=== PATIENT | male | born 1985 | race Hispanic/Latino ===

== ENCOUNTER → 2016-12-30 | Outpatient (CLI) | payer OTHER ==
[~2016-12-30] VITALS: Ht 165.1 cm; Wt 72.6 kg
[~2016-12-30] MED LIST: MELA0.02 PO; NS 1,000 ML IV SCH; PROPOFOL 200 MG/20 ML VIAL As Ordered ONE
--- NOTE | 2016-12-30 15:26 | ROOR ---
Patient Name: Joseph Rivas Procedure Date: 12/30/2016 2:57 PM Date of : 1985 Age: 31 Room: [facility] Gender: Male Note Status: Finalized Procedure: Colonoscopy Indications: Hematochezia, Change in bowel habits Providers: Marc LE MD Referring MD: ANDREW MORALES MD Requesting Provider: Medicines: Monitored Anesthesia Care Complications: No immediate complications. Procedure: Pre-Anesthesia Assessment: - The heart rate, respiratory rate, oxygen saturations, blood pressure, adequacy of pulmonary ventilation, and response to care were monitored throughout the procedure. The Colonoscope was introduced through the anus and advanced to 10 cm into the ileum. The colonoscopy was performed without difficulty. The patient tolerated the procedure well. The quality of the bowel preparation was good. Findings: The perianal and digital rectal examinations were normal. A 5 mm polyp was found at 15 cm proximal to the anus. The polyp was sessile. The polyp was removed with a cold snare. Resection and retrieval were complete. Area was tattooed with an injection of Jayleen ink. The exam was otherwise without abnormality on direct and retroflexion views. The terminal ileum appeared normal. Internal hemorrhoids were found during retroflexion. The hemorrhoids were small. Impression: - One 5 mm rectal polyp at 15 cm proximal to the anus, removed with a cold snare. Jayleen ink placed, Resected and retrieved. - Small Internal hemorrhoids. - The examination of the colon and terminal ileum was otherwise normal on direct and retroflexion views. - (Irritable Bowel Syndrome/IBS suspected.) Recommendation: - Use fiber, for example Citrucel, Fibercon, Konsyl or Metamucil. - Telephone endoscopist for pathology results in 2 weeks. Marc Le MD Marc LE MD 12/30/2016 3:26:02 PM This report has been signed electronically. Number of Addenda: 0 Note Initiated On: 12/30/2016 2:57 PM Estimated Blood Loss: Estimated blood loss: none.
[2016-12-30 15:50] VITALS: BP 132/78
== END | disposition home or self-care (01) ==
LOC: M OPP 11:29
PROVIDERS: ATTEND Internal Medicine Gastroenterology
DX: D12.7 Benign neoplasm of rectosigmoid junction (principal); G47.00 Insomnia, unspecified